=== PATIENT | female | born 1975 | race African-American/Black ===

== ENCOUNTER 2017-06-30 09:06 | Emergency (ER) | payer OTHER ==
[2017-06-30] MEDS ORDERED: D5 0.9 NS 1,000 ML IV ONE (09:37)
[2017-06-30 09:41] LABS: Absolute Lymphocytes (CBC) 1.9 K/uL (0.7-4.9); Absolute Monocytes 0.5 K/uL (0.1-1.3); Absolute Neutrophil 9.7 K/uL (1.8-8.0); Basophils % 0.3 % (0-1.3); Eosinophils % 1.1 % (0-4.4); Hematocrit 34.9 % (36.0-45.0); Lymphocytes % 15.6 % (15.3-44.8); MCH 27.7 pg (27.0-35.0); MCV 83.3 fL (80-100); MPV 9.1 fL (7.6-11.3); Monocytes % 3.7 % (3.3-12.3); RBC Red Blood Cell Count 4.19 M/uL (3.86-4.86)
[2017-06-30 09:54] LABS: Bicarbonate 22 mEq/L (21-31); Glucose Level 117 mg/dL (65-120); Lipase 21 U/L (22-51); Potassium 3.2 mEq/L (3.6-5.0); Sodium Level 134 mEq/L (135-145)
[2017-06-30 10:00] LABS: ALT/SGPT 21 IU/L (10-60); AST/SGOT 26 IU/L (10-42); Albumin 3.4 g/dL (3.2-5.5); Alkaline Phosphatase 68 IU/L (42-121); BUN Blood Urea Nitrogen 8 mg/dL (6-20); Bilirubin Direct 0.1 mg/dL (0-0.2); Bilirubin Total 0.3 mg/dL (0.3-1.2); Protein, Total 7.7 g/dL (6.0-8.3)
--- NOTE | 2017-06-30 10:31 | EKG ---
Test Date: 2017-06-30 Test Time: 09:23:37 Curriculum Advisory Teacher: MARIA LUISA MEASUREMENT RESULTS: Intervals: Rate: 82 NH: 144 QRSD: 90 QT: 372 QTc: 434 [place]: P: 60 NH: 144 QRS: 12 T: 22 INTERPRETIVE STATEMENTS: Normal sinus rhythm Cannot rule out Anterior infarct, age undetermined Abnormal ECG No previous ECG available for comparison Electronically Signed On 06-30-17 10:30:48 CDT by Cem Zimmerman
[2017-06-30 10:59] LABS: Urine Blood TRACE (NEG); Urine Glucose NEGATIVE (NEG); Urine Protein NEGATIVE (NEG); Urine Specific Gravity 1.025 (1.005-1.030); Urine pH 5.5 (5.0-7.0)
[2017-06-30 11:07] LABS: Urine Bacteria 20-50 /HPF (<20); Urine Culture Reflex Order REFLEXED
[2017-06-30] MEDS ORDERED: POTASSIUM 25 MEQ EFFERV TAB ONE (11:30)
--- NOTE | 2017-06-30 11:38 | ER ---
Nurse's Notes [facility] Name: Leonid Perez Age: 42 yrs Sex: Female : 1975 Arrival Date: 06/30/2017 Time: 09:09 Bed 18 Private MD: Diagnosis: Dehydration;Cystitis, unspecified Presentation: 06/30 09:10 Presenting complaint: Patient states: "I was sitting down and felt faint and hot". aa5 Denies syncope, denies N/V, denies pain. Pt reports being 18 weeks . Transition of care: patient was not received from another setting of care. Onset of symptoms was June 30, 2017. Care prior to arrival: None. 09:10 Method Of Arrival: EMS: [facility] aa5 09:10 Acuity: PATRICK 3 aa5 09:10 Initial Sepsis Screen: Does the patient meet any 2 criteria? No. Patient's initial aa5 sepsis screen is negative. Does the patient have a suspected source of infection? No. Patient's initial sepsis screen is negative. 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 - Social history:: Smoking status: Patient/guardian denies using tobacco. Screenin:42 Abuse screen: Denies threats or abuse. Nutritional screening: No deficits noted. aa5 Tuberculosis screening: No symptoms or risk factors identified. Fall Risk None identified. Assessment: 09:12 General: Appears uncomfortable, Behavior is calm, cooperative. Pain: Denies pain. aa5 Neuro: Level of Consciousness is awake, alert, obeys commands, Oriented to person, place, time, situation, Quality Process Lead are equal bilaterally Moves all extremities. Speech is normal, Facial symmetry appears normal, Pupils are PERRLA. Cardiovascular: Reports lightheadedness, Heart tones S1 S2 present Rhythm is regular. Respiratory: Airway is patent Respiratory effort is even, unlabored, Respiratory pattern is regular, symmetrical. GI: Patient currently denies nausea, vomiting. : No signs and/or symptoms were reported regarding the genitourinary system. EENT: No signs and/or symptoms were reported regarding the EENT system. Derm: Skin is clammy, Skin is normal, Skin temperature is cool. Musculoskeletal: Range of motion: intact in all extremities. 10:30 Reassessment: Patient and/or family updated on plan of care and expected duration. Pain aa5 level reassessed. Patient denies pain at this time. Patient states feeling better. Neuro: Level of Consciousness is awake, alert, obeys commands, Oriented to person, place, time, situation. Respiratory: Airway is patent Respiratory effort is even, unlabored, Respiratory pattern is regular, symmetrical. Derm: Skin is dry, Skin is normal, Skin temperature is warm. 11:30 Reassessment: Patient and/or family updated on plan of care and expected duration. Pain aa5 level reassessed. Heart Tones: 140 bpm by . Neuro: Level of Consciousness is awake, alert, obeys commands, Oriented to person, place, time, situation. Respiratory: Airway is patent Respiratory effort is even, unlabored, Respiratory pattern is regular, symmetrical. Derm: Skin is dry, Skin is normal, Skin temperature is warm. Vital Signs: 09:12 BP 125 / 80; Pulse 88; Resp 18 S; Temp 97.0(TE); Pulse Ox 100% on R/A; Weight 99.79 kg aa5 (R); Height 5 ft. 1 in. (154.94 cm) (R); Pain 0/10; 10:11 BP 130 / 94; Pulse 72; Resp 15; Pulse Ox 100% on R/A; mh5 12:00 BP 104 / 66; Pulse 80; Resp 16 S; Pulse Ox 100% on R/A; Pain 0/10; aa5 09:12 Body Mass Index 41.57 (99.79 kg, 154.94 cm) aa5 ED Course: 09:09 Patient arrived in ED. aa5 09:11 Triage completed. aa5 09:12 Arm band placed on Patient placed on a stretcher. aa5 09:13 Reginaldo Mariee MD is Attending Physician. 09:15 Sheri Duarte, QUE is Primary Nurse. aa5 09:23 Patient has correct armband on for positive identification. Placed in gown. Side rails mh5 up X2. Adult w/ patient. Warm blanket given. playground monitor on. Pulse ox on. NIBP on. 09:27 Missed attempt(s): 20 gauge in left antecubital area. Bleeding controlled, band aid aa5 applied, catheter tip intact. 09:30 Initial lab(s) drawn, by me, sent to lab. Inserted saline lock: 22 gauge in left aa5 forearm, using aseptic technique. Blood collected. 09:47 EKG done, by electrical instrumentation technician. reviewed by Reginaldo Mariee MD. at1 09:48 No provider procedures requiring assistance completed. aa5 12:15 IV discontinued, intact, bleeding controlled, No redness/swelling at site. Pressure aa5 dressing applied. Administered Medications: 09:40 Drug: D5-NS 1000 ml Route: IV; Rate: bolus; Site: left forearm; aa5 11:30 Follow up: IV Status: Completed infusion aa5 11:30 Drug: Potassium Effervescent Tablet 25 mEq Route: PO; aa5 12:00 Follow up: Response: No adverse reaction aa5 Point of Care Testing: Blood Glucose: 09:12 Blood Glucose: 113 mg/dL; aa5 Ranges: Outcome: 11:38 Discharge ordered by . 12:15 Discharged to home ambulatory, with co-worker aa 12:15 Condition: stable 12:15 Discharge instructions given to patient, Instructed on discharge instructions, follow up and referral plans. medication usage, Demonstrated understanding of instructions, follow-up care, medications, Prescriptions given X 1. 12:24 Patient left the ED. aa5 Addendum: 07/03/2017 14:47 Addendum: Culture Results: Positive urine culture. No further action required. Bacteria i w sensitive to prescribed antibiotic. Signatures: Celia Huffman RN RN iw Calderon, Audri, RN RN [facility] Trice albright, control supervisor EKG [facility] Reginaldo Mariee MD MD
--- NOTE | 2017-06-30 11:38 | EDPHYS ---
Physician Documentation [facility] Name: Leonid Perez Age: 42 yrs Sex: Female : 1975 Arrival Date: 06/30/2017 Time: 09:09 Bed 18 Private MD: ED Physician Reginaldo Mariee HPI: 06/30 11:33 This 42 yrs old Black Female presents to ER via EMS with complaints of Near Syncope. gs 11:33 The patient has experienced near-syncope, felt generally weak. Onset: The gs symptoms/episode began/occurred gradually, just prior to arrival. Duration: This was a single episode, that is still ongoing, but improving. Associated injury: The patient did not suffer any apparent associated injury. Associated signs and symptoms: Pertinent positives: Pertinent negatives: abdominal pain, chest pain, shortness of breath. Current symptoms: Currently, the patient is not experiencing any symptoms. The patient has experienced similar episodes in the past, a few times. says having lots of vomiting in . 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 - Social history:: Smoking status: Patient/guardian denies using tobacco. ROS: 11:33 All other systems are negative. gs Exam: 11:33 Head/Face: Normocephalic, atraumatic. Eyes: Pupils equal round and reactive to light, gs extra-ocular motions intact. Lids and lashes normal. Conjunctiva and sclera are non-icteric and not injected. Cornea within normal limits. Periorbital areas with no swelling, redness, or edema. 11:33 ENT: Nares patent. No nasal discharge, no septal abnormalities noted. Tympanic membranes are normal and external auditory canals are clear. Oropharynx with no redness, swelling, or masses, exudates, or evidence of obstruction, uvula midline. Mucous membranes moist. Neck: Trachea midline, no thyromegaly or masses palpated, and no cervical lymphadenopathy. Supple, full range of motion without nuchal rigidity, or vertebral point tenderness. No Meningismus. Chest/axilla: Normal chest wall appearance and motion. Nontender with no deformity. No lesions are appreciated. Cardiovascular: Regular rate and rhythm with a normal S1 and S2. No gallops, murmurs, or rubs. Normal PMI, no JVD. No pulse deficits. Respiratory: Lungs have equal breath sounds bilaterally, clear to auscultation and percussion. No rales, rhonchi or wheezes noted. No increased work of breathing, no retractions or nasal flaring. Abdomen/GI: Soft, non-tender, with normal bowel sounds. No distension or tympany. No guarding or rebound. No evidence of tenderness throughout. Back: No spinal tenderness. No costovertebral tenderness. Full range of motion. Skin: Warm, dry with normal turgor. Normal color with no rashes, no lesions, and no evidence of cellulitis. MS/ Extremity: Pulses equal, no cyanosis. Neurovascular intact. Full, normal range of motion. Neuro: Awake and alert, GCS 15, oriented to person, place, time, and situation. Cranial nerves II-XII grossly intact. Motor strength 5/5 in all extremities. Sensory grossly intact. Cerebellar exam normal. Normal gait. 11:33 Constitutional: The patient appears in no acute distress, alert, awake. 11:33 ECG was reviewed by the Attending Physician. 11:33 Abdomen/GI: Inspection: gravid appearance, is noted. Vital Signs: 09:12 BP 125 / 80; Pulse 88; Resp 18 S; Temp 97.0(TE); Pulse Ox 100% on R/A; Weight 99.79 kg aa5 (R); Height 5 ft. 1 in. (154.94 cm) (R); Pain 0/10; 10:11 BP 130 / 94; Pulse 72; Resp 15; Pulse Ox 100% on R/A; mh5 12:00 BP 104 / 66; Pulse 80; Resp 16 S; Pulse Ox 100% on R/A; Pain 0/10; aa5 09:12 Body Mass Index 41.57 (99.79 kg, 154.94 cm) aa5 MDM: 09:15 Patient medically screened. 11:33 Differential Diagnosis: cardiac arrhythmia, , vasovagal episode, dehydration. Data reviewed: vital signs, nurses notes. 06/30 09:14 Order name: Basic Metabolic Panel; Complete Time: 11:07 gs 06/30 09:14 Order name: CBC with Diff; Complete Time: 11:07 06/30 09:14 Order name: Hepatic Function; Complete Time: 11:07 06/30 09:14 Order name: Lipase; Complete Time: 11:07 06/30 09:14 Order name: Urine Microscopic Only; Complete Time: 11:31 06/30 10:48 Order name: Urine Dipstick--Ancillary (enter results); Complete Time: 11:07 06/30 09:14 Order name: IV Saline Lock; Complete Time: 09:34 06/30 09:14 Order name: Labs collected and sent; Complete Time: 09:34 06/30 09:14 Order name: Urine Dipstick-Ancillary (obtain specimen); Complete Time: 11:06 06/30 09:14 Order name: EKG; Complete Time: 09:15 06/30 10:48 Order name: Urine --Ancillary (enter results); Complete Time: 11:07 06/30 11:09 Order name: Urine Culture EDOH 06/30 09:14 Order name: EKG - Nurse/Tech; Complete Time: 09:34 gs EC:33 Rate is 82 beats/min. Rhythm is regular. SC interval is normal. QRS interval is normal. gs T waves are Flattened. No ST changes noted. Clinical impression: NSR w/ Non-specific ST/T Changes. Interpreted by me. Administered Medications: 09:40 Drug: D5-NS 1000 ml Route: IV; Rate: bolus; Site: left forearm; aa5 11:30 Follow up: IV Status: Completed infusion aa5 11:30 Drug: Potassium Effervescent Tablet 25 mEq Route: PO; aa5 12:00 Follow up: Response: No adverse reaction aa5 Point of Care Testing: Blood Glucose: 09:12 Blood Glucose: 113 mg/dL; aa5 Ranges: Critical Glucose Levels:Adult <50 mg/dl or >400 mg/dl <40 mg/dl or >180 mg/dl Disposition: 06/30/17 11:38 Discharged to Home. Impression: Dehydration, Cystitis, unspecified. - Condition is Stable. - Discharge Instructions: Dehydration, Adult, Near-Syncope, and Urinary Tract Infection. - Prescriptions for Macrobid 100 mg Oral Capsule - take 1 capsule by ORAL route every 12 hours for 5 days; 10 capsule. - Work release form, Medication Reconciliation Form, Thank You Letter, Antibiotic Education, Prescription Opioid Use form. - Follow up: Private Physician; When: 2 - 3 days; Reason: Re-evaluation by your physician. Signatures: Dispatcher [employer] Sheri Valadez RN RN aa5 Reginaldo Mariee MD MD gs Corrections: (The following items were deleted from the chart) 12:24 11:38 06/30/2017 11:38 Discharged to Home. Impression: Dehydration; Cystitis, aa5 unspecified. Condition is Stable. Forms are Medication Reconciliation Form, Thank You Letter, Antibiotic Education, Prescription Opioid Use. Follow up: Private Physician; When: 2 - 3 days; Reason: Re-evaluation by your physician. gs
== END 2017-06-30 12:24 | disposition home or self-care (01) ==
LOC: ER 09:06
DX: N30.90 Cystitis, unspecified without hematuria (principal); E86.0 Dehydration
CPT/HCPCS: 36415; 80048; 80076; 81003; 81015; 81025; 82962; 83690; 85025; 87077; 87086; 87088; 87186; 93005; 96360; 96361; 99285